=== PATIENT | male | born 1945 | race Two or more races ===

== ENCOUNTER → 2025-06-12 | Outpatient (CLI) | payer MEDICARE, SELFPAY ==
--- NOTE | 2025-06-12 | XR_ITS ---
Examination: Left knee 2 views Technique one AP lateral left knee 2 views Date and time: June 12, 2025 1157 hours INDICATIONS: Left knee swelling beginning 3 weeks ago. FINDINGS: Mild osteopenia. No fracture or dislocation. Small to moderate knee effusion IMPRESSION: Small to moderate knee effusion
== END | disposition home or self-care (01) ==
DX: M25.462 Effusion, left knee (principal)
CPT/HCPCS: 73560

== ENCOUNTER → 2025-08-15 | Outpatient (CLI) | payer MEDICARE, SELFPAY ==
--- NOTE | 2025-08-15 14:45 | XR_ITS ---
Exam: MRI knee without contrast, left Date and time of exam: August 15, 2025 1453 hours INDICATIONS: Left knee swelling and pain beginning 3 months ago Technique: Multiple axial, coronal, and sagittal sections on the knee have been obtained. T2-Weighted sagittal, fat-suppressed images, TR 3,500, TE 62, T2 weighted coronal fat-saturated images, TR 3,500, TE 62 Proton density sagittal sections, TR 1800, TE 31. T-1 weighted coronal images, TR 524, TE 13.0 Findings: Medial meniscus anterior horn intact. Medial meniscus, body meniscocapsular separation. Posterior horn medial meniscus broad horizontal linear tear communicating inferior articular surface. Lateral meniscus anterior horn is intact Lateral meniscus, body is intact Posterior horn lateral meniscus is intact Anterior cruciate ligament mild sprain Posterior cruciate ligament appears intact. Knee effusion is moderate. Quadriceps and patellar tendons appear intact. There is no evidence of tendinosis. Inflammatory change or fracture of Hoffa's fat pad is not seen. Medial patellar facet demonstrates severe thinning. Lateral patellar facet cartilage demonstrates severe thinning. Trochlear cartilage demonstrates severe thinning. Marrow signal adequate. Medial collateral ligament appears intact. . Illiotibial band and fibular collateral ligament are intact. Biceps femoris tendons appear intact. Medial femoral condylar articular cartilage demonstrates severe thinning. Lateral femoral condylar articular cartilage demonstratesmoderate thinning. Tibial plateau cartilage demonstrates severe medial thinning. Impression: Meniscocapsular separation body the medial meniscus Complex tears posterior horn medial meniscus Mild sprain anterior cruciate ligament
== END | disposition home or self-care (01) ==
LOC: SMRI 14:22
DX: S83.242A Other tear of medial meniscus, current injury, left knee, initial encounter (principal); S83.512A Sprain of anterior cruciate ligament of left knee, initial encounter; X58.XXXA Exposure to other specified factors, initial encounter
CPT/HCPCS: 73721

== ENCOUNTER → 2025-09-15 | Outpatient (CLI) | payer MEDICARE, MEDICAID, SELFPAY ==
--- NOTE | 2025-09-15 | XR_ITS ---
EXAMINATION:. Lateral chest 2 views TECHNIQUE: Upright PA lateral chest 2 views Date and time: August, 1115 hours INDICATIONS: Coughing this week. FINDINGS: 4.5 cm pulmonary neoplastic mass in the right upper lobe spiculated margins Enlarged right hilum Pulmonary mass posterior right lower lobe 7.7 x 5.6 cm Accentuation of bronchovascular markings. Normal heart size Extensive right paratracheal tracheobronchial lymphadenopathy IMPRESSION: 4.5 cm pulmonary mass right upper lobe A 7.7 cm pulmonary mass posterior right lower lobe Extensive right mediastinal lymphadenopathy Recommend CT chest post intravenous contrast follow-up
== END | disposition home or self-care (01) ==
DX: R91.8 Other nonspecific abnormal finding of lung field (principal)
CPT/HCPCS: 71046

== ENCOUNTER → 2025-09-26 | Outpatient (CLI) | payer MEDICARE, MEDICAID, SELFPAY ==
--- NOTE | 2025-09-26 14:00 | XR_ITS ---
Examination: CT chest with intravenous contrast 2-D sagittal and coronal reconstructions Exam date and time: September 26, 2025, 1603 hours INDICATIONS: X-ray chest September 15, 2025 4.5 cm pulmonary mass right lower lobe, 7.7 cm pulmonary mass right lower lobe with extensive mediastinal lymphadenopathy CTDI:vol (mGy) 14 DLP: (mGycm) 549 Technique: Multiple axial sections of the thorax have been obtained. Sections have been obtained, 3 mm slice thickness. Mediastinal and lung density settings have been obtained. Intravenous contrast administered, 60 cc [id number]. 2-D sagittal, coronal images obtained. Low dose protocols were performed. One or more of the following dose reduction techniques were used; automated exposure control, adjustment of the mA and/or KV according to patient size, use of iterative reconstruction technique. Findings: Massive high right paratracheal anterior mediastinal right tracheobronchial, aortopulmonary window, bilateral tracheobronchial bilateral hilar subcarinal lymphadenopathy No thoracic aortic aneurysm dilatation No pulmonary artery filling defects Spiculated pulmonary mass right upper lobe 4.1 cm Spiculated pulmonary mass left upper lobe 2.4 cm Spiculated pulmonary mass right lower lobe 6.7 cm Spiculated pulmonary mass left upper lobe 18 cm No lobar pneumonia or pulmonary edema No visualized liver or splenic lesion Contracted gallbladder No pancreatic mass No hydronephrosis Infrarenal abdominal aorta 28 mm Moderate osteopenia IMPRESSION: Extensive mediastinal lymphadenopathy 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
== END | disposition home or self-care (01) ==
LOC: SCAT 13:41
DX: R59.0 Localized enlarged lymph nodes (principal); R91.8 Other nonspecific abnormal finding of lung field
CPT/HCPCS: 71260; A4649; Q9967

== ENCOUNTER → 2025-10-20 | Outpatient (CLI) | payer MEDICARE, SELFPAY ==
--- NOTE | 2025-10-20 09:45 | XR_ITS ---
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
== END | disposition home or self-care (01) ==
PROVIDERS: PCP Internal Medicine; Referring Provider Internal Medicine; Visit Provider Internal Medicine
DX: I71.40 Abdominal aortic aneurysm, without rupture, unspecified (principal)
CPT/HCPCS: 76770

== ENCOUNTER → 2025-10-31 | Outpatient (CLI) | payer MEDICARE, SELFPAY ==
--- NOTE | 2025-10-31 13:15 | XR_ITS ---
EXAMINATION: PET/CT FUSION SKULL TO THIGH EXAM DATE AND TIME: October 01, 2025, 1400 hours COMPARISON: CT chest September 26, 2025 INDICATIONS: Multiple pulmonary masses on CT chest September 26, 2025 CTDI:vol (mGy) 7.95 DLP: (mGycm) 726 PROCEDURE: 15.98 mCi FDG was administered intravenously To allow for distribution and uptake of radiotracer, the patient was allowed to rest quietly in a shielded room. Imaging was performed on an integrated 16-slice PET/CT scanner, with scanning from the skull base to the mid thigh. Serum blood glucose at the time of the injection was measured 102 mg/dL. CT scanning was performed without oral or intravenous contrast material. FINDINGS: Head and Neck: Mildly 19 mm, 24 mm supraclavicular right lymph nodes Extensive hypermetabolic mediastinal lymphadenopathy including anterior mediastinal, right tracheobronchial, preaortic, right hilar, left tracheobronchial, high left periaortic, subcarinal 4.5 cm hypermetabolic pulmonary nodule right upper lobe 27 mm hypermetabolic pulmonary nodule left upper lobe 6.4 cm hypermetabolic pulmonary mass posterior right upper lobe, 14 mm hypermetabolic pulmonary nodule left upper lobe Chest: There is no thony hypermetabolism in the chest. There are no pulmonary nodules. Abdomen and Pelvis: There is no thony hypermetabolism in retroperitoneal or pelvic chains. The spleen is normal in size and FDG avidity. Musculoskeletal: Marrow uptake is within normal range. IMPRESSION: Right supraclavicular hypermetabolic metastatic lymphadenopathy Extensive hypermetabolic mediastinal lymphadenopathy Multiple hypermetabolic pulmonary masses
== END | disposition home or self-care (01) ==
LOC: CDIM 12:27
PROVIDERS: Referring Provider Internal Medicine; Visit Provider Internal Medicine
DX: R59.0 Localized enlarged lymph nodes (principal); R91.8 Other nonspecific abnormal finding of lung field
CPT/HCPCS: 78815; A9552

== ENCOUNTER → 2025-11-07 | Outpatient (CLI) | payer MEDICARE, SELFPAY ==
--- NOTE | 2025-11-07 12:00 | XR_ITS ---
Examination: MRI brain without intravenous contrast. Date and time of exam: November 07, 2025, 1600 hours INDICATIONS: Altered mental status beginning 10 days ago, diagnosis multiple pulmonary masses on CT examination Technique: Multiple axial and sagittal images of the brain obtained. Siemens high-resolution 1.5 Yessenia short bore scanners utilized. Sagittal sections, T1-weighted, TR 500, TE 14, are performed. Axial sections proton-density and T2-weighted have been obtained. Inversion recovery axial images, TR 9, 260, TE 111, TI 2500. Diffusion weighted images, axial sections, TR 4800, TE 128, B value 1000 Axial sections, ADC map, TR 4800, TE 128 Findings: Enlargement of the sella turcica is not present. The optic chiasm and infundibular are not remarkable. Prepontine and interpeduncular cisterns are not enlarged. There is no localized enlargement of the medulla or joanne. Fourth ventricle and cerebellar tonsils appear normal in position. No subacute area of hemorrhage density is seen. Mass in the cerebellopontine angle region is not evident. Globes symmetrical. Orbital musculature including medial lateral rectus muscles do not exhibit abnormality. Diffusion-weighted images demonstrate no focus of restricted diffusion. Increased white matter signal prominent Mass effect upon the ventricular system is not identified. Impression: Negative for acute hemorrhage, mass effect or midline shift No acute infarct Prominent chronic microvascular white matter change cysts
== END | disposition home or self-care (01) ==
DX: R90.82 White matter disease, unspecified (principal)
CPT/HCPCS: 70551